=== PATIENT | female | born 1955 | race Caucasian/White ===

== ENCOUNTER → 2017-01-17 | Outpatient (CLI) | payer OTHER ==
[~2017-01-17] MED LIST: OSCAL/D,OYSTER250 MG PO; PEPCID20 MG PO; REMERON15 M2 PO; TRAMADOL HCL50 MG PO; VICODIN 5/500 505 MG PO; VITAMIN D-32000 UNI1 PO
== END ==
LOC: RAD 10:26
DX: M81.0 Age-related osteoporosis without current pathological fracture (principal); Z78.0 Asymptomatic menopausal state

== ENCOUNTER → 2017-03-14 | Outpatient (CLI) | payer OTHER | END | disposition home or self-care (01) | LOC: RAD 11:03 | DX: J44.1 Chronic obstructive pulmonary disease with (acute) exacerbation (principal); Z87.891 Personal history of nicotine dependence ==

== ENCOUNTER → 2018-05-02 | Day surgery (SDC) | payer OTHER ==
[~2018-05-02] VITALS: Ht 154.9 cm; Wt 37.6 kg
[~2018-05-02] MED LIST changes: +FOSAMAX70 M1 PO; +MOTRIN 600 MG E4 TAB PO; +PROVENTIL HFA6.7 GM INH; +VENTOLIN 02.5 MG/3 M INH
--- NOTE | ~2018-05-02 | PROC NOTE ---
[place], [place] PROCEDURE NOTE NAME: BECCA ELENA UNIT #: [id number] ROOM: DOCTOR: STEPHEN SAXENA MD BIRTHDATE: [birth year] DOS: 05/02/2018 PREOPERATIVE DIAGNOSIS: History of colon polyps. POSTOPERATIVE DIAGNOSES: Colon polyp, internal hemorrhoids. PROCEDURE: Colonoscopy with polypectomy x 1. ENDOSCOPIST: Stephen Saxena M.D. [employer]CHOOL COMMISSIONER: [employer]. ANESTHESIA: MAC. INDICATIONS: This is a 63-year-old lady with a previous colonoscopy which showed a tubular adenoma, who is here for a followup colonoscopy. The procedure and its complications were explained to the patient in detail preoperatively. Complications that were discussed included, but were not limited to, bleeding, colon perforation, missed lesions and prolonged pain. She agreed to proceed. DESCRIPTION OF PROCEDURE: After identifying the patient, the patient was brought to the endoscopy suite and placed in the left lateral position. After IV sedation was administered, a timeout procedure was called and a digital rectal exam was performed. This was within normal limits. An adult colonoscope was now introduced into the anal canal and advanced sequentially into the rectum, sigmoid colon, descending colon, transverse colon and ascending colon up to the cecum. Upon reaching the cecum, the scope was withdrawn. Total withdrawal time was 7 minutes, there was found to be 1 small polyp, that was visualized at 95 cm, which was removed with the help of a polypectomy forceps and sent for histopathological diagnosis. After hemostasis was confirmed, the colonoscope was withdrawn. There was found to be internal hemorrhoids in the region of the rectum upon retroflexion of the scope. Scope was withdrawn and the patient was brought back to the recovery room in a stable fashion. There were no complications. Dr. Stephen Saxena, the attending endoscopist, was present to the operating case. Based on these findings, the patient is recommended to have another colonoscopy in 3-5 years or sooner if she has new symptoms. These findings were discussed with the patient's in the postoperative recovery room. [place], [place] PROCEDURE NOTE NAME: BECCA ELENA UNIT #: [id number] ROOM: DOCTOR: STEPHEN SAXENA MD BIRTHDATE: [birth year] Stephen Saxena MD CM:AMILCAR:PROCEDURE NOTE STEPHEN SAXENA MD
[2018-05-02 08:40] VITALS: BP 130/62
[2018-05-02 09:44] VITALS: BP 136/69
== END | disposition home or self-care (01) ==
LOC: SDC 04-30 14:45
DX: Z12.11 Encounter for screening for malignant neoplasm of colon (principal); Z86.010 Personal history of colon polyps; D12.3 Benign neoplasm of transverse colon; M19.90 Unspecified osteoarthritis, unspecified site; K21.9 Gastro-esophageal reflux disease without esophagitis; M81.0 Age-related osteoporosis without current pathological fracture; J43.9 Emphysema, unspecified; Z87.19 Personal history of other diseases of the digestive system; Z85.41 Personal history of malignant neoplasm of cervix uteri; Z90.710 Acquired absence of both cervix and uterus; Z98.890 Other specified postprocedural states; Z82.49 Family history of ischemic heart disease and other diseases of the circulatory system; Z87.891 Personal history of nicotine dependence; Z88.8 Allergy status to other drugs, medicaments and biological substances; Z79.899 Other long term (current) drug therapy

== ENCOUNTER → 2020-06-28 | Outpatient (CLI) | payer MEDICARE | END | disposition home or self-care (01) | LOC: RAD 08:44 | PROVIDERS: ATTEND Physician Assistant | DX: M81.0 Age-related osteoporosis without current pathological fracture (principal); R60.0 Localized edema; M25.841 Other specified joint disorders, right hand; M19.041 Primary osteoarthritis, right hand; J44.9 Chronic obstructive pulmonary disease, unspecified; M79.644 Pain in right finger(s); M19.91 Primary osteoarthritis, unspecified site; Z91.09 Other allergy status, other than to drugs and biological substances ==

== ENCOUNTER → 2020-07-07 | Outpatient (CLI) | payer MEDICARE | END | disposition home or self-care (01) | LOC: NM 09:49 | PROVIDERS: ATTEND Physician Assistant | DX: M17.11 Unilateral primary osteoarthritis, right knee (principal); D16.8 Benign neoplasm of pelvic bones, sacrum and coccyx; N28.89 Other specified disorders of kidney and ureter; M79.644 Pain in right finger(s) ==

== ENCOUNTER → 2020-07-19 | Outpatient (CLI) | payer MEDICARE | END | disposition home or self-care (01) | LOC: RAD 10:25 | PROVIDERS: ATTEND Physician Assistant | DX: R19.00 Intra-abdominal and pelvic swelling, mass and lump, unspecified site (principal) ==

== ENCOUNTER → 2020-07-23 | Outpatient (CLI) | payer MEDICARE | END | disposition home or self-care (01) | LOC: US 04:01 | PROVIDERS: ATTEND Physician Assistant | DX: N28.1 Cyst of kidney, acquired (principal); N32.89 Other specified disorders of bladder; N28.89 Other specified disorders of kidney and ureter; R19.00 Intra-abdominal and pelvic swelling, mass and lump, unspecified site; Z90.710 Acquired absence of both cervix and uterus ==

== ENCOUNTER → 2020-08-04 | Outpatient (CLI) | payer MEDICARE | END | disposition home or self-care (01) | LOC: CT 08-03 13:44 | PROVIDERS: ATTEND Orthopaedic Surgery | DX: N20.0 Calculus of kidney (principal); N28.1 Cyst of kidney, acquired; K57.30 Diverticulosis of large intestine without perforation or abscess without bleeding ==

== ENCOUNTER → 2020-08-23 | Outpatient (CLI) | payer MEDICARE | END | disposition home or self-care (01) | LOC: COVID19 12:40 | PROVIDERS: ATTEND Orthopaedic Surgery | DX: Z01.812 Encounter for preprocedural laboratory examination (principal); Z20.822 Contact with and (suspected) exposure to COVID-19 ==

== ENCOUNTER → 2020-08-26 | Day surgery (SDC) | payer MEDICARE ==
[2020-08-23 13:25] VITALS: BP 143/81
[2020-08-23 14:38] LABS: BASO # 0.1 10*3/uL (0.0-0.1); BASO % 0.9 % (0.0-1.0); EOS # 0.1 10*3/uL (0.0-0.4); EOS % 2.2 % (1.0-4.0); HEMATOCRIT 46.1 % (37.0-47.0); LYMPH # 1.9 10*3/uL (1.3-4.4); LYMPH % 32.6 % (27.0-41.0); MEAN CELL VOLUME 93.1 fl (81.0-99.0); MEAN CORPUSCULAR HGB 30.9 pg (27.0-31.0); MEAN CORPUSCULAR HGB CONC 33.2 g/dl (33.0-37.0); MEAN PLATELET VOLUME 12.1 fl (9.6-12.3); MONO # 0.6 10*3/uL (0.1-1.0); MONO % 10.6 % (3.0-9.0); NEUT # 3.1 10*3/uL (2.3-7.9); NEUT % 53.5 % (47.0-73.0); PLATELET COUNT AUTOMATED 222 10*3/uL (130-400); RED BLOOD COUNT 4.95 10*6/uL (4.10-5.10); RED CELL DISTRI WIDTH 12.7 % (0-14.5); WHITE BLOOD COUNT 5.9 10*3/uL (4.8-10.8)
[2020-08-23 15:05] LABS: BUN 17 mg/dl (7-24); CHLORIDE 105 mmol/L (98-107); CREATININE 0.61 mg/dL (0.55-1.02); POTASSIUM 3.9 mmol/L (3.5-5.1); SODIUM 138 mmol/L (136-145)
[~2020-08-26] VITALS: Ht 154.9 cm; Wt 37.6 kg
[2020-08-26 06:56] VITALS: BP 144/73
[2020-08-26 08:30] VITALS: BP 115/60
[2020-08-26 08:45] VITALS: BP 115/62
[2020-08-26 09:03] VITALS: BP 136/68
== END | disposition home or self-care (01) ==
LOC: SDC 08-23 13:15
PROVIDERS: ATTEND Orthopaedic Surgery
DX: R22.31 Localized swelling, mass and lump, right upper limb (principal); M89.9 Disorder of bone, unspecified; J44.9 Chronic obstructive pulmonary disease, unspecified; M81.0 Age-related osteoporosis without current pathological fracture; K21.9 Gastro-esophageal reflux disease without esophagitis; F41.9 Anxiety disorder, unspecified; F32.9 Major depressive disorder, single episode, unspecified; Z85.41 Personal history of malignant neoplasm of cervix uteri; M19.90 Unspecified osteoarthritis, unspecified site; Z90.710 Acquired absence of both cervix and uterus; Z98.890 Other specified postprocedural states

== ENCOUNTER → 2024-02-29 | Outpatient (CLI) | payer MEDICARE | END | disposition home or self-care (01) | LOC: RAD 09:00 | PROVIDERS: ATTEND Physician Assistant | DX: Z13.820 Encounter for screening for osteoporosis (principal); M81.0 Age-related osteoporosis without current pathological fracture; M19.90 Unspecified osteoarthritis, unspecified site ==

== ENCOUNTER → 2024-04-08 | Outpatient (CLI) | payer MEDICARE ==
[~2024-04-08] MED LIST changes: +DENOSUMAB 60 MG/ML SYRINGE SC ONE
[2024-04-08 08:58] VITALS: BP 143/66
== END | disposition home or self-care (01) ==
LOC: INJECTION 08:41
PROVIDERS: ATTEND Physician Assistant
DX: M81.0 Age-related osteoporosis without current pathological fracture (principal); J44.9 Chronic obstructive pulmonary disease, unspecified; K21.9 Gastro-esophageal reflux disease without esophagitis; F41.9 Anxiety disorder, unspecified; F32.A Depression, unspecified; Z90.710 Acquired absence of both cervix and uterus; Z87.891 Personal history of nicotine dependence

== ENCOUNTER → 2024-09-30 | Outpatient (CLI) | payer MEDICARE ==
[~2024-09-30] MED LIST changes: -DENOSUMAB 60 MG/ML SYRINGE SC ONE
[2024-09-30 10:17] LABS: BUN 15 mg/dl (9-23); CHLORIDE 102 mmol/L (98-107); POTASSIUM 3.9 mmol/L (3.4-5.1)
== END | disposition home or self-care (01) ==
LOC: LAB 09:18
PROVIDERS: ATTEND Physician Assistant
DX: J44.9 Chronic obstructive pulmonary disease, unspecified (principal); M81.0 Age-related osteoporosis without current pathological fracture

== ENCOUNTER → 2024-10-07 | Outpatient (CLI) | payer MEDICARE ==
[~2024-10-07] MED LIST changes: +DENOSUMAB 60 MG/ML SYRINGE SC ONE
[2024-10-07 08:48] VITALS: BP 139/50
== END | disposition home or self-care (01) ==
LOC: INJECTION 08:51
PROVIDERS: ATTEND Physician Assistant
DX: M81.0 Age-related osteoporosis without current pathological fracture (principal); K21.9 Gastro-esophageal reflux disease without esophagitis; F41.9 Anxiety disorder, unspecified; F32.A Depression, unspecified; J44.9 Chronic obstructive pulmonary disease, unspecified; Z90.710 Acquired absence of both cervix and uterus

== ENCOUNTER → 2025-04-08 | Outpatient (CLI) | payer MEDICARE ==
[2025-04-07 13:00] VITALS: BP 126/56
[2025-04-08 10:31] VITALS: BP 129/50
== END | disposition home or self-care (01) ==
LOC: INJECTION 10:00
PROVIDERS: ATTEND Physician Assistant
DX: M81.0 Age-related osteoporosis without current pathological fracture (principal); J44.9 Chronic obstructive pulmonary disease, unspecified; K21.9 Gastro-esophageal reflux disease without esophagitis; F41.9 Anxiety disorder, unspecified; F32.A Depression, unspecified; Z87.891 Personal history of nicotine dependence; Z90.710 Acquired absence of both cervix and uterus